=== PATIENT | male | born 1955 | race Caucasian/White ===

== ENCOUNTER 2024-01-02 15:22 | Inpatient (IN) | payer MEDICAID, OTHER ==
[~2024-01-02] VITALS: Ht 177.8 cm; Wt 124.4 kg
[2024-01-02] MEDS ORDERED: ACET-2247 PO (18:42)
[2024-01-02 18:58] LABS: COVID AG,FIA SOURCE NASAL SWAB
[2024-01-02] MEDS ORDERED: GABA-1181 PO (19:00)
[2024-01-02] MEDS ORDERED: DIPH-1243 PO (19:00)
[2024-01-02] MEDS ORDERED: MAGN-169 PO (19:00)
[2024-01-02] MEDS ORDERED: MULT-1192 PO (19:00)
[2024-01-02] MEDS ORDERED: METO50 PO (19:00)
[2024-01-02] MEDS ORDERED: BISA10SU11 PR (19:00)
[2024-01-02] MEDS ORDERED: SACU1TAB7 PO (19:00)
[2024-01-02] MEDS ORDERED: DOCU100C33 PO (19:00)
[2024-01-02] MEDS ORDERED: NA P133E4 PR (19:00)
[2024-01-02] MEDS ORDERED: BUME1TAB50 PO (19:00)
[2024-01-02] MEDS ORDERED: EPLE25TA11 PO (19:00)
[2024-01-02] MEDS ORDERED: APIX5TAB PO (19:00)
[2024-01-02] MEDS ORDERED: ATOR40TA28 PO (19:00)
[2024-01-02] MEDS ORDERED: INSU100I26 SQ ×2 (19:00)
[2024-01-02] MEDS ORDERED: IPRA4AER IH (19:00)
[2024-01-02] MEDS ORDERED: MAGN400T57 PO (19:00)
[2024-01-02] MEDS ORDERED: METF-1211 PO (19:00)
[2024-01-02] MEDS ORDERED: INSU100V45 SQ (19:00)
[2024-01-02] MEDS ORDERED: AMIO200T68 PO (19:00)
[2024-01-02] MEDS ORDERED: AMMO225L14 TP (19:00)
[2024-01-02] MEDS ORDERED: ASCO500 PO (19:00)
[2024-01-02 19:05] LABS: PH,URINE DRUG SCREEN 5.5 (5.0-8.0)
[2024-01-02 19:12] LABS: ALCOHOL, URINE DRUG SCREEN NEGATIVE (NEGATIVE); AMPHET/METH SCREEN,URINE NEGATIVE (NEGATIVE); BARBITURATE SCREEN, URINE NEGATIVE (NEGATIVE); BENZODIAZEPINES SCREEN,URINE NEGATIVE (NEGATIVE); CANNABINOID SCREEN,URINE NEGATIVE (NEGATIVE); COCAINE SCREEN,URINE NEGATIVE (NEGATIVE); METHADONE SCREEN, URINE NEGATIVE (NEGATIVE); OPIATE SCREEN,URINE NEGATIVE (NEGATIVE); PHENCYCLIDINE SCREEN,URINE NEGATIVE (NEGATIVE)
[2024-01-02 19:31] LABS: SARS-COV2 (COVID) ANTIGEN,FIA Negative (Negative)
[2024-01-03 02:43] VITALS: BP 125/71; PULSE 58; RESP 18; TEMP 96; O2SAT 97
[2024-01-03] MEDS ORDERED: PNEUMOCOCCAL VACCINE POLYVALENT 0.5 ML SYRINGE [PPSV23] IM. ONE (03:45)
[2024-01-03 09:18] VITALS: BP 115/57; PULSE 57; RESP 17; TEMP 96.2; O2SAT 99
[2024-01-03] MEDS ORDERED: ACETAMINOPHEN 325 MG TABLET PO PRN (10:00)
[2024-01-03] MEDS ORDERED: CloNIDine HCL 0.1 MG TABLET PO PRN (10:00)
[2024-01-03] MEDS ORDERED: BUMETANIDE 1 MG TABLET PO SCH (10:00)
[2024-01-03] MEDS ORDERED: BACITRACIN 28 GM OINTMENT TP PRN (10:00)
[2024-01-03] MEDS ORDERED: GLUCAGON,HUMAN RECOMBINANT 1 MG VIAL IM PRN (10:00)
[2024-01-03] MEDS ORDERED: ONDANSETRON HCL 4 MG TABLET PO PRN (10:00)
[2024-01-03] MEDS ORDERED: LOPERAMIDE HCL 2 MG CAPSULE PO PRN (10:00)
[2024-01-03] MEDS ORDERED: BENZOCAINE/MENTHOL LOZENGE PO PRN (10:00)
[2024-01-03] MEDS ORDERED: AMIODARONE HCL 200 MG TABLET PO SCH (10:00)
[2024-01-03] MEDS ORDERED: DOCUSATE SODIUM 100 MG CAPSULE PO PRN (10:00)
[2024-01-03] MEDS ORDERED: PETROLATUM,WHITE 28 GM JELLY TP PRN (10:00)
[2024-01-03] MEDS ORDERED: MAGNESIUM HYDROXIDE SUSPENSION 30 ML UDCUP PO PRN (10:00)
[2024-01-03] MEDS ORDERED: MAG HYDROX/ALUMINUM HYD/SIMETH ES 30 ML SUSPENSION UDCUP PO PRN (10:00)
[2024-01-03] MEDS ORDERED: ALBUTEROL SULFATE HFA 90 MCG/PUFF 8 GM INHALER IH PRN (10:00)
[2024-01-03] MEDS ORDERED: OMEPRAZOLE 20 MG CAPSULE PO PRN (10:00)
[2024-01-03] MEDS: APIXABAN 5 MG TABLET PO SCH (17:00)
[2024-01-03] MEDS: MetFORMIN HCL 500 MG TABLET PO SCH (17:00)
[2024-01-03 19:15] VITALS: RESP 19
[2024-01-03] MEDS: INSULIN LISPRO 100 UNITS/ML SQ PRN (22:03)
[2024-01-03] MEDS: INSULIN GLARGINE,HUM.REC.ANLOG 100 UNITS/ML SQ SCH (22:07)
[2024-01-03] MEDS: ATORVASTATIN CALCIUM 40 MG TABLET PO SCH (22:08)
[2024-01-03] MEDS: MIRTAZAPINE 15 MG TABLET PO SCH (22:08)
[2024-01-03] MEDS: CEPHALEXIN MONOHYDRATE 500 MG CAPSULE PO SCH (22:11)
[2024-01-03 22:21] LABS: GLUCOMETER DEV NAME(LOC) BV3N.; GLUCOSE,POINT OF CARE 219 MG/DL (70-110)
[2024-01-04] MEDS ORDERED: BACITRACIN 28 GM OINTMENT TP PRN (00:15)
[2024-01-04] MEDS ORDERED: BENZOCAINE/MENTHOL LOZENGE PO PRN (00:15)
[2024-01-04] MEDS: MetFORMIN HCL 500 MG TABLET PO SCH (06:18)
[2024-01-04 06:25] LABS: GLUCOMETER DEV NAME(LOC) BV3N.; GLUCOSE,POINT OF CARE 89 MG/DL (70-110)
[2024-01-04 08:25] VITALS: RESP 18
[2024-01-04] MEDS: METOPROLOL TARTRATE 50 MG TABLET PO SCH (09:00)
[2024-01-04] MEDS: GABAPENTIN 300 MG CAPSULE PO SCH (09:00)
[2024-01-04] MEDS: SACUBITRIL/VALSARTAN 49-51 MG TABLET PO SCH (09:00)
[2024-01-04] MEDS: SULFAMETHOX/TRIMETH DS 800-160 MG/TABLET PO SCH (09:25)
[2024-01-04] MEDS: BUMETANIDE 1 MG TABLET PO SCH (09:30)
[2024-01-04] MEDS: AMIODARONE HCL 200 MG TABLET PO SCH (09:30)
[2024-01-04] MEDS: INSULIN GLARGINE,HUM.REC.ANLOG 100 UNITS/ML SQ SCH (10:32)
[2024-01-04 10:55] LABS: GLUCOMETER DEV NAME(LOC) BV3N.; GLUCOSE,POINT OF CARE 119 MG/DL (70-110)
[2024-01-04 17:15] LABS: GLUCOMETER DEV NAME(LOC) BV3N.; GLUCOSE,POINT OF CARE 164 MG/DL (70-110)
[2024-01-04 17:15] LABS: GLUCOMETER DEV NAME(LOC) BV3N.; GLUCOSE,POINT OF CARE 110 MG/DL (70-110)
[2024-01-04] MEDS: MUPIROCIN CALCIUM 2% 22 GM OINTMENT TP SCH (17:37)
[2024-01-04 22:12] VITALS: RESP 20
[2024-01-04 22:26] LABS: GLUCOMETER DEV NAME(LOC) BV3N.; GLUCOSE,POINT OF CARE 157 MG/DL (70-110)
[2024-01-05 06:50] LABS: GLUCOMETER DEV NAME(LOC) BV3N.; GLUCOSE,POINT OF CARE 101 MG/DL (70-110)
[2024-01-05 08:00] VITALS: BP 122/64; PULSE 64; RESP 20; TEMP 97.5; O2SAT 97
[2024-01-05] MEDS: MULTIVITAMINS WITH MINERALS, THERAPEUTIC TABLET PO SCH (08:18)
[2024-01-05 08:51] LABS: GLUCOMETER DEV NAME(LOC) BV3N.; GLUCOSE,POINT OF CARE 92 MG/DL (70-110)
[2024-01-05] MEDS: ETHYL ALCOHOL 62% ANTISEPTIC NASAL SANITIZER 0.6 ML AMPUL NASAL SCH (14:26)
[2024-01-05 14:46] LABS: GLUCOMETER DEV NAME(LOC) BV3N.; GLUCOSE,POINT OF CARE 162 MG/DL (70-110)
[2024-01-05 17:05] LABS: GLUCOMETER DEV NAME(LOC) BV3N.; GLUCOSE,POINT OF CARE 177 MG/DL (70-110)
[2024-01-05 20:35] LABS: GLUCOMETER DEV NAME(LOC) BV3N.; GLUCOSE,POINT OF CARE 135 MG/DL (70-110)
[2024-01-05] MEDS: CHLORHEXIDINE GLUCONATE 2% TOWELETTE [2'S/6'S] TP SCH (20:58)
[2024-01-05 21:15] VITALS: BP 109/60; PULSE 60; RESP 18; TEMP 97.5; O2SAT 96
[2024-01-06 06:35] LABS: GLUCOMETER DEV NAME(LOC) BV3N.; GLUCOSE,POINT OF CARE 105 MG/DL (70-110)
[2024-01-06 08:33] VITALS: BP 111/56; PULSE 59; RESP 17; TEMP 89.1; O2SAT 93
[2024-01-06 11:50] LABS: GLUCOMETER DEV NAME(LOC) BV3N.; GLUCOSE,POINT OF CARE 115 MG/DL (70-110)
[2024-01-06] MEDS: METOPROLOL TARTRATE 25 MG TABLET PO SCH (16:16)
[2024-01-06 16:35] LABS: GLUCOMETER DEV NAME(LOC) BV3N.; GLUCOSE,POINT OF CARE 130 MG/DL (70-110)
[2024-01-06 21:11] VITALS: BP 121/72; PULSE 70; RESP 16; TEMP 98.7; O2SAT 96
[2024-01-06 21:25] LABS: GLUCOMETER DEV NAME(LOC) BV3N.; GLUCOSE,POINT OF CARE 114 MG/DL (70-110)
[2024-01-07 07:00] LABS: GLUCOMETER DEV NAME(LOC) BV3N.; GLUCOSE,POINT OF CARE 88 MG/DL (70-110)
[2024-01-07 08:41] VITALS: BP 128/81; PULSE 60; RESP 18; TEMP 97.9; O2SAT 98
[2024-01-07 20:24] VITALS: RESP 20
[2024-01-07] MEDS: IBUPROFEN 600 MG TABLET PO PRN (20:24)
[2024-01-07] MEDS: ZOLPIDEM TARTRATE 10 MG TABLET PO PRN (20:34)
[2024-01-07 20:37] VITALS: BP 109/70; PULSE 70; RESP 16; TEMP 97.8; O2SAT 95
[2024-01-07 21:24] VITALS: RESP 18
[2024-01-07 23:51] LABS: GLUCOMETER DEV NAME(LOC) BV3N.; GLUCOSE,POINT OF CARE 74 MG/DL (70-110)
[2024-01-07 23:51] LABS: GLUCOMETER DEV NAME(LOC) BV3N.; GLUCOSE,POINT OF CARE 115 MG/DL (70-110)
[2024-01-07 23:51] LABS: GLUCOMETER DEV NAME(LOC) BV3N.; GLUCOSE,POINT OF CARE 81 MG/DL (70-110)
[2024-01-07 23:51] LABS: GLUCOMETER DEV NAME(LOC) BV3N.; GLUCOSE,POINT OF CARE 102 MG/DL (70-110)
[2024-01-07 23:51] LABS: GLUCOMETER DEV NAME(LOC) BV3N.; GLUCOSE,POINT OF CARE 139 MG/DL (70-110)
[2024-01-08 08:32] LABS: BASOPHILS % (AUTO) 0.4 % (0.0-2.0); EOSINOPHILS % (AUTO) 2.9 % (1.0-6.0); HEMOGLOBIN 14.9 g/dL (13.5-17.5); LYMPHOCYTES # (AUTO) 2.8 K/uL (1.0-4.8); LYMPHOCYTES % (AUTO) 39.2 % (22.0-44.0); MEAN CORPUSCULAR HEMOGLOBIN 31.2 pg (26.0-34.0); MEAN CORPUSCULAR VOLUME 94 fL (80-100); MONOCYTES # (AUTO) 0.6 K/uL (0.1-1.0); NEUTROPHILS # (AUTO) 3.5 K/uL (1.8-7.7); NEUTROPHILS % (AUTO) 48.5 % (40.0-70.0); PLATELET COUNT (AUTO) 232 K/uL (150-450); RED BLOOD CELL COUNT(AUTO) 4.76 MIL/uL (4.50-5.90); RED CELL DISTRIBUTION WIDTH 15.1 % (11.5-14.5); WHITE BLOOD COUNT (AUTO) 7.2 K/uL (4.5-11.0)
[2024-01-08 08:37] LABS: PROTHROMBIN TIME 10.9 SEC (9.4-11.6)
[2024-01-08 08:45] LABS: HEMOGLOBIN A1C 6.1 % (3.8-5.6)
[2024-01-08 08:52] LABS: ALBUMIN 3.4 g/dL (3.4-5.0); CALCIUM, TOTAL 9.5 mg/dL (8.8-10.5); CHOL/HDL RATIO 3.8 (4.2-7.3); CREATININE 1.41 mg/dL (0.60-1.30); FREE T4 (FREE THYROXINE) 0.89 ng/dL (0.76-1.46); MAGNESIUM 2.1 mg/dL (1.80-2.40); THYROID STIMULATING HORMONE 4.72 uIU/mL (0.36-3.74); TOTAL PROTEIN, SERUM 7.9 g/dL (6.4-8.2)
[2024-01-08 10:44] VITALS: BP 137/72; PULSE 61; RESP 18; TEMP 87.8; O2SAT 99
[2024-01-08 11:01] LABS: GLUCOMETER DEV NAME(LOC) BV3N.; GLUCOSE,POINT OF CARE 106 MG/DL (70-110)
[2024-01-08 11:55] LABS: GLUCOMETER DEV NAME(LOC) BV3N.; GLUCOSE,POINT OF CARE 117 MG/DL (70-110)
[2024-01-08] MEDS: HALOPERIDOL 5 MG TABLET PO PRN (17:04)
[2024-01-08] MEDS: LORazepam 2 MG TABLET PO PRN (17:04)
[2024-01-08 21:19] VITALS: BP 115/66; PULSE 60; RESP 18; TEMP 98
[2024-01-09 08:21] VITALS: BP 119/69; PULSE 60; RESP 16; TEMP 97.6; O2SAT 96
[2024-01-09 08:21] LABS: GLUCOMETER DEV NAME(LOC) BV3N.; GLUCOSE,POINT OF CARE 155 MG/DL (70-110)
[2024-01-09 08:21] LABS: GLUCOMETER DEV NAME(LOC) BV3N.; GLUCOSE,POINT OF CARE 170 MG/DL (70-110)
[2024-01-09 16:00] VITALS: BP 121/74; PULSE 69; RESP 18; TEMP 97.6
[2024-01-09] MEDS: GABAPENTIN 400 MG CAPSULE PO SCH (17:00)
[2024-01-09 20:40] LABS: GLUCOMETER DEV NAME(LOC) BV3N.; GLUCOSE,POINT OF CARE 85 MG/DL (70-110)
[2024-01-09 20:41] LABS: GLUCOMETER DEV NAME(LOC) BV3N.; GLUCOSE,POINT OF CARE 177 MG/DL (70-110)
[2024-01-09 20:49] VITALS: BP 117/81; PULSE 67; TEMP 98.6; O2SAT 95
[2024-01-10 06:45] LABS: GLUCOMETER DEV NAME(LOC) BV3N.; GLUCOSE,POINT OF CARE 135 MG/DL (70-110)
[2024-01-10] MEDS: DULoxetine HCL 20 MG CAPSULE PO SCH (08:27)
[2024-01-10 08:36] VITALS: BP 138/78; PULSE 64; RESP 18; TEMP 97.8; O2SAT 98
[2024-01-10 12:51] LABS: GLUCOMETER DEV NAME(LOC) BV3N.; GLUCOSE,POINT OF CARE 123 MG/DL (70-110)
[2024-01-10 18:45] LABS: GLUCOMETER DEV NAME(LOC) BV3N.; GLUCOSE,POINT OF CARE 154 MG/DL (70-110)
[2024-01-10 20:20] VITALS: BP 100/70; PULSE 63; RESP 16; TEMP 98.7; O2SAT 96
[2024-01-10 22:41] LABS: GLUCOMETER DEV NAME(LOC) BV3N.; GLUCOSE,POINT OF CARE 145 MG/DL (70-110)
[2024-01-11 06:36] LABS: GLUCOMETER DEV NAME(LOC) BV3N.; GLUCOSE,POINT OF CARE 146 MG/DL (70-110)
[2024-01-11] MEDS: DULoxetine HCL 30 MG CAPSULE PO SCH (08:09)
[2024-01-11 08:23] VITALS: BP 111/64; PULSE 60; RESP 17; TEMP 97.4; O2SAT 95
[2024-01-11] MEDS ORDERED: DULO-114 PO ×2 (10:48→13:46)
[2024-01-11] MEDS ORDERED: GABA-1181 PO (10:48)
[2024-01-11] MEDS ORDERED: MIRT-89 PO ×2 (10:48→13:45)
[2024-01-11 11:50] LABS: GLUCOMETER DEV NAME(LOC) BV3N.; GLUCOSE,POINT OF CARE 133 MG/DL (70-110)
[2024-01-11] MEDS: GABAPENTIN 300 MG CAPSULE PO SCH (12:30)
[2024-01-11 16:45] VITALS: BP 116/77; PULSE 68; RESP 17; TEMP 97.6
[2024-01-14 09:20] LABS: GLUCOMETER DEV NAME(LOC) BV3N.; GLUCOSE,POINT OF CARE 158 MG/DL (70-110)
[2024-01-14 09:20] LABS: GLUCOMETER DEV NAME(LOC) BV3N.; GLUCOSE,POINT OF CARE 98 MG/DL (70-110)
== END 2024-01-11 17:08 | DRG 750 ==
LOC: EMS 15:22 → B3A 01-03 00:32
PROVIDERS: ADMIT Psychiatry & Neurology Psychiatry; ATTEND Psychiatry & Neurology Psychiatry
DX: F25.9 Schizoaffective disorder, unspecified (principal); I11.0 Hypertensive heart disease with heart failure; I50.9 Heart failure, unspecified; F33.2 Major depressive disorder, recurrent severe without psychotic features; L03.116 Cellulitis of left lower limb; E11.9 Type 2 diabetes mellitus without complications; E78.5 Hyperlipidemia, unspecified; Z20.822 Contact with and (suspected) exposure to COVID-19; K59.00 Constipation, unspecified; F41.9 Anxiety disorder, unspecified; F51.01 Primary insomnia; I48.91 Unspecified atrial fibrillation; G89.29 Other chronic pain; Z59.00 Homelessness unspecified; Z79.899 Other long term (current) drug therapy; Z79.4 Long term (current) use of insulin; Z79.01 Long term (current) use of anticoagulants
CPT/HCPCS: 80053; 80061; 80307; 82962; 83036; 83735; 84100; 84439; 84443; 85025; 85610; 87070; 87081; 87205; 87481; J1815; Q9967

== ENCOUNTER 2024-01-03 11:46 | Emergency (ER) | payer MEDICAID, OTHER ==
[~2024-01-03] VITALS: Ht 180.3 cm; Wt 124.5 kg
[~2024-01-03 11:46] MED LIST: ACET-2247 PO; AMIO200T68 PO; AMMO225L14 TP; APIX5TAB PO; ASCO500 PO; ATOR40TA28 PO; BISA10SU11 PR; BUME1TAB50 PO; DIPH-1243 PO; DOCU100C33 PO; EPLE25TA11 PO; GABA-1181 PO; INSU100I26 SQ; INSU100V45 SQ; IPRA4AER IH; MAGN-169 PO; MAGN400T57 PO; METF-1211 PO; METO50 PO; MULT-1192 PO; NA P133E4 PR; SACU1TAB7 PO
[2024-01-03 12:01] VITALS: TEMP 97.6
[2024-01-03] MEDS: BACITRACIN 0.9 GM PACKET OINTMENT TP ONE (12:13)
[2024-01-03] MEDS: CEPHALEXIN MONOHYDRATE 500 MG CAPSULE PO ONE (12:13)
[2024-01-03] MEDS: SULFAMETHOX/TRIMETH DS 800-160 MG/TABLET PO ONE (12:13)
[2024-01-03 12:15] LABS: GLUCOMETER DEV NAME(LOC) ER.7; GLUCOSE,POINT OF CARE 148 MG/DL (70-110)
[2024-01-03 16:00] VITALS: BP 118/78; PULSE 78; RESP 14
== END 2024-01-03 17:14 | disposition home or self-care (01) ==
LOC: EMS 11:46
DX: L03.032 Cellulitis of left toe (principal); E11.9 Type 2 diabetes mellitus without complications; I10 Essential (primary) hypertension; Z79.4 Long term (current) use of insulin
CPT/HCPCS: 82962; 99283